=== PATIENT | male | born 1970 | race Caucasian/White ===

== ENCOUNTER 2017-09-09 14:52 | Emergency (ER) | payer OTHER ==
[~2017-09-09] VITALS: Ht 152.4 cm; Wt 55.0 kg
[~2017-09-09 14:52] MED LIST: CELE10TA9 PO; QUET1TAB67 PO; SERO100T PO
[2017-09-09 14:59] VITALS: BP 119/68; PULSE 67; RESP 14; TEMP 97.7; O2SAT 98
[2017-09-09] MEDS ORDERED: MEDR4PAK PO (15:50)
--- NOTE | 2017-09-09 15:50 | PD ---
HPI Chief Complaint: Bite or Sting Time Seen by Provider: 15:43 Travel History International Travel<30 days: No Contact w/Intl Traveler<30days: No Traveled to known affect area: No History of Present Illness HPI 47-year-old male presents emergency department for evaluation of bilateral hand pain. He states this is been intermittently occurring for several weeks to months, but he feels like they are worse today and swollen. He denies any known insect bites. He denies any fever or chills. He denies any injury. He states with moving them, the pain seems to improve throughout the day but it is much worse in the morning. He has not taken anything for the pain. He has no other symptoms to report. PFSH Past Medical History Bipolar Disorder: Yes Depression: Yes Diminished Hearing: No ?: Not Social History Alcohol Use: Yes (OCCASIONALLY) Tobacco Use: Yes (2 PPD) Substance Use: Yes Allergies-Medications (Allergen,Severity, Reaction): Coded Allergies: No Known Allergies (Verified , 08/07/08) Reported Meds & Prescriptions Reported Meds & Active Scripts Active Medrol Dosepak (Methylprednisolone) 4 Mg Dspk 4 Mg PO DIRECTED Per Pharmacist direction Seroquel (Quetiapine Fumarate) 100 Mg Tab 100 Mg PO DIRECTED 1/2 TID AND 1 1/2 HS Celexa (Citalopram Hydrobromide) 10 Mg Tab 10 Mg PO DAILY Reported Celexa (Citalopram Hydrobromide) 10 Mg Tab 0 Mg PO UNKNOWN DOSE Seroquel (Quetiapine Fumarate) 100 Mg Tab 150 Mg PO HS Seroquel (Quetiapine Fumarate) 25 Mg Tab 50 Mg PO TID Review of Systems Except as stated in HPI: all other systems reviewed are Neg Physical Exam Narrative GENERAL: Well-nourished male patient, no acute distress SKIN: Focused skin assessment warm/dry. HEAD: Atraumatic. Normocephalic. EYES: Pupils equal and round. No scleral icterus. No injection or drainage. ENT: No nasal bleeding or discharge. Mucous membranes pink and moist. NECK: Trachea midline. No JVD. CARDIOVASCULAR: Regular rate and rhythm. No murmur appreciated. RESPIRATORY: No accessory muscle use. Clear to auscultation. Breath sounds equal bilaterally. MUSCULOSKELETAL: No obvious deformities. No clubbing. No cyanosis. No edema. Patient has 4 out of 5 life insurance underwriter strength bilateral upper extremities. States it is painful to make a fist. Cap refills within normal limits. There is no erythema. NEUROLOGICAL: Awake and alert. No obvious cranial nerve deficits. Motor grossly within normal limits. Normal speech. Data Data Last Documented VS Vital Signs Date Time Temp Pulse Resp B/P (MAP) Pulse Ox O2 Delivery O2 Flow Rate FiO2 09/09/17 14:59 97.7 67 14 119/68 (85) 98 Orders Orders Dexamethasone Inj (Decadron Inj) (09/09/17 16:00) Ketorolac Inj (Toradol Inj) (09/09/17 16:00) Ed Discharge Order (09/09/17 15:48) [facility] Medical Decision Making Medical Screen Exam Complete: Yes Emergency Medical Condition: Yes Medical Record Reviewed: Yes Differential Diagnosis Osteoarthritis versus rheumatoid arthritis versus joint pain versus carpal tunnel versus contusion versus sprain Narrative Course 47-year-old male presents emergency department for evaluation of bilateral hand pain. Symptoms seem to improve throughout the day after flexion-extension of all the digits. He does have slightly weakened life insurance underwriter strength bilaterally. There is no significant erythema or edema to the hands. I do believe this is likely arthritic in nature. I have encouraged follow-up with her primary care provider for further evaluation. He agrees to return immediately with acute worsening symptoms. Diagnosis Primary Impression: Bilateral hand pain Referrals: Primary Care Physician Patient Instructions: Arthritis (ED), General Instructions Additional Instructions: It is recommended that you follow up with a primary care provider for further evaluation of your joint pain Return to ED with acute worsening of symptoms Med/Other Pt SpecificInfo: Prescription(s) given Scripts Methylprednisolone Dosepak (Medrol Dosepak) 4 Mg Dspk 4 MG PO DIRECTED, #1 DSPK 0 Refills Per Pharmacist direction Prov: PablitoConchis JENNINGS 09/09/17 Disposition: 01 DISCHARGE HOME Condition: Stable Conchis Kenney Sep 09, 2017 15:50
[2017-09-09] MEDS ORDERED: KETOROLAC TROMETHAMINE 60 MG/2 ML (IM) VIAL IM ONE (16:00)
[2017-09-09] MEDS ORDERED: DEXAMETHASONE SOD PHOS 4 MG/ML VIAL IM ONE (16:00)
== END 2017-09-09 16:09 | disposition home or self-care (01) ==
LOC: NEPE 14:52
DX: M79.641 Pain in right hand (principal); M79.642 Pain in left hand; F17.200 Nicotine dependence, unspecified, uncomplicated; F31.9 Bipolar disorder, unspecified
CPT/HCPCS: 96372; 99283; J1100; J1885